=== PATIENT | female | born 1980 | race Two or more races ===

== ENCOUNTER 2022-08-14 10:23 | Outpatient (CLI) | payer MEDICARE | END 2022-08-14 10:24 | disposition EMS.NT | LOC: EMS 10:23 | DX: K86.1 Other chronic pancreatitis (principal) ==

== ENCOUNTER 2022-08-14 11:15 | Emergency (ER) | payer MEDICARE ==
[2022-08-14 11:55] LABS: BASOPHILS % (AUTO) 0.5 %; EOSINOPHILS # (AUTO) 0.4 10^3/uL (0.0-0.7); EOSINOPHILS % (AUTO) 4.6 %; HCT - HEMATOCRIT 36.4 % (37.0-47.0); LYMPHOCYTES # (AUTO) 2.4 10^3/uL (1.5-3.5); LYMPHOCYTES % (AUTO) 28.9 %; MEAN CORPUSCULAR HEMOGLOBIN 26.4 pg (27.0-31.0); MEAN CORPUSCULAR HGB CONC 30.2 g/dL (32.0-36.0); MEAN CORPUSCULAR VOLUME 87.3 fL (81.0-99.0); MEAN PLATELET VOLUME 11.3 fL (7.9-10.8); MONOCYTES # (AUTO) 0.8 10^3/uL (0.0-1.0); MONOCYTES % (AUTO) 9.3 %; NEUTROPHILS # (AUTO) 4.7 10^3/uL (1.5-6.6); NEUTROPHILS % (AUTO) 55.3 %; PLT - PLATELET COUNT 252 10^3/uL (130-450); RED BLOOD COUNT 4.17 10^6/uL (4.20-5.40); RED CELL DISTRIBUTION WIDTH 16.5 % (12.0-15.0); WHITE BLOOD COUNT 8.4 x10^3/uL (4.8-10.8)
[2022-08-14] MEDS ORDERED: HYDROmorphone 1 MG/ML CARPUJECT IVP STA ×2 (12:01→13:55)
[2022-08-14] MEDS ORDERED: SODIUM CHLORIDE 0.9% 1,000 ML IV STA (12:01)
--- NOTE | 2022-08-14 12:02 | ED Physician Documentation ---
History of Present Illness - Stated complaint Stated Complaint: ABD PX/SYNCOPAL/MIGRAINE - Chief complaint Chief Complaint: Neuro - History obtained from History obtained from: Patient - Additonal information Additional information: 42-year-old woman with history of recurrent pancreatitis related to remote alcoholism, having quit drinking 2 years ago. She also has a history of cholecystectomy, Guillain-Simmons syndrome in 2015, and migraines. She developed her usual pancreatitis abdominal pain starting 2 days ago, epigastric and radiating to the right upper quadrant and diffusely as well as the back. Nausea but no vomiting. When she gets severe pain she tends to have syncope and she did pass out twice today with severe pain. There is no associated chest pain or trouble breathing. She has noted allergies to ketorolac and morphine but says she tolerates Dilaudid well. Review of Systems Ten Systems: 10 systems reviewed and negative Cardiac: denies: Chest pain / pressure, Palpitations Respiratory: denies: Dyspnea, Cough GI: reports: Abdominal Pain, Nausea. denies: Vomiting, Diarrhea PD PAST MEDICAL HISTORY - Past Medical History Past Medical History: Yes Endocrine/Autoimmune: Other GI: Pancreatitis, Cirrhosis Other Past Medical History: hx of ETOH abuse/liver failure - Past Surgical History Past Surgical History: Yes General: Cholecystectomy - Present Medications Home Medications: Ambulatory Orders Medication Instructions Recorded Confirmed Ondansetron Odt [Zofran] 4 mg TL Q6H PRN #10 tablet 08/14/22 Oxycodone HCl/Acetaminophen 1 - 2 each PO Q6H PRN #14 tablet 08/14/22 [Percocet 5-325 mg Tablet] - Allergies Allergies/Adverse Reactions: Allergies Allergy/AdvReac Type Severity Reaction Status Date / Time adhesive tape Allergy Unknown Verified 08/14/22 11:20 ketorolac [From Toradol] Allergy Rash Verified 08/14/22 11:20 morphine Allergy Rash Verified 08/14/22 11:20 - Social History Does the pt smoke?: No Smoking Status: Never smoker Does the pt drink ETOH?: No Does the pt have substance abuse?: No - POLST Patient has POLST: No PD ED PE NORMAL - Vitals Vital signs reviewed: Yes - General General: Alert and oriented X 3, No acute distress - Cardiac Cardiac: RRR, No murmur - Respiratory Respiratory: No respiratory distress, Clear bilaterally - Abdomen Abdomen: Normal bowel sounds, Soft, Non tender - Derm Derm: No rash - Extremities Extremities: No edema, No calf tenderness / cord - Neuro Neuro: Alert and oriented X 3, Normal speech Results - Vitals Vitals: Vital Signs - 24 hr 08/14/22 08/14/22 08/14/22 11:20 11:54 13:24 Temperature 37.2 C Heart Rate 82 84 92 Respiratory 14 17 20 Rate Blood Pressure 141/79 H 110/72 103/68 O2 Saturation 100 99 100 08/14/22 14:30 Temperature 36.3 C L Heart Rate 87 Respiratory 21 Rate Blood Pressure 132/80 H O2 Saturation 93 Oxygen O2 Source Room air - Labs Labs: Laboratory Tests 08/14/22 08/14/22 08/14/22 11:46 11:46 11:46 WBC 8.4 RBC 4.17 L Hgb 11.0 L Hct 36.4 L MCV 87.3 MCH 26.4 L MCHC 30.2 L RDW 16.5 H Plt Count 252 MPV 11.3 H Neut # (Auto) 4.7 Lymph # (Auto) 2.4 [place] # (Auto) 0.8 Eos # (Auto) 0.4 Baso # (Auto) 0.0 Absolute Nucleated RBC 0.00 Nucleated RBC % 0.0 Sodium 132 L Potassium 4.0 Chloride 100 L Carbon Dioxide 26 Anion Gap 6.0 BUN 19 Creatinine 0.9 Estimated GFR (MDRD) 68 L Glucose 100 Calcium 8.4 L Total Bilirubin 0.6 AST 23 ALT 24 Alkaline Phosphatase 121 Troponin I High Sens < 2.3 L Total Protein 7.4 Albumin 3.7 Globulin 3.7 Albumin/Globulin Ratio 1.0 Lipase 34 Urine HCG, Qual 08/14/22 12:34 WBC RBC Hgb Hct MCV MCH MCHC RDW Plt Count MPV Neut # (Auto) Lymph # (Auto) [place] # (Auto) Eos # (Auto) Baso # (Auto) Absolute Nucleated RBC Nucleated RBC % Sodium Potassium Chloride Carbon Dioxide Anion Gap BUN Creatinine Estimated GFR (MDRD) Glucose Calcium Total Bilirubin AST ALT Alkaline Phosphatase Troponin I High Sens Total Protein Albumin Globulin Albumin/Globulin Ratio Lipase Urine HCG, Qual NEGATIVE PD Medical Decision Making - ED course ED course: 42-year-old woman presents with abdominal pain similar to prior episodes of chronic recurrent pancreatitis. She has a benign exam, labs were normal with the exception of mild anemia and mild hyponatremia. Feeling better after divided doses of pain medication and IV fluids. She passed a p.o. challenge here and requested discharge. We counseled her on clear liquid diet for the next day. Departure - Departure Disposition: 01 Home, Self Care Clinical Impression: Abdominal pain Condition: Good Record reviewed to determine appropriate education?: Yes Instructions: ED Abdominal Pain Female Non-Specific Abdominal Pain Prescriptions: Oxycodone HCl/Acetaminophen [Percocet 5-325 mg Tablet] 1 - 2 each PO Q6H PRN #14 tablet PRN Reason: pain Ondansetron Odt [Zofran] 4 mg TL Q6H PRN #10 tablet PRN Reason: Nausea / Vomiting Comments: I sent your prescriptions to [facility] in [place]. Return for new or worsening symptoms. Follow-up with your primary care physician on the return home. I am prescribing a short course of narcotic pain medication for you. These are potentially dangerous and addictive medications that should be used carefully. These medications may constipate you. Take an ypgl-zsn-wgbsrci stool softener (docusate) twice daily with plenty of water while taking these medications. If you go 24 hours without a bowel movement, take fivw-tzq-nhvloqj miralax, per package instructions. Do not drink or drive while taking these medications. If you received narcotic or sedating medications while in the emergency department, do not drive for 24 hours. Store this medication in a safe, secure place and out of reach of children. It is a violation of federal law to give or sell this medication to another person or to use in a manner other than prescribed. The ED will not refill narcotic prescriptions, including prescriptions lost or stolen. To dispose of unwanted medications: 1. [facility] at [address] in [place] has a medication drop box. They accept prescription medications (in pill form) Thursday through Thursday 9:00 a.m. to 5:00 p.m. 2. The [facility] accepts prescription medications (in pill form only) for disposal year round. Call for more information. 3. Contact the [facility] for the next [facility] prescription drug collection event. , [phone], or [phone]; Note that many narcotic pain relievers also contain Tylenol/acetaminophen. Please ensure that your total dose of acetaminophen from all sources does not exceed 3 g (3000 mg) per day. Discharge Date/Time: 08/14/22 14:51
[2022-08-14 12:10] LABS: ALBUMIN 3.7 g/dL (3.2-5.5); BILIRUBIN,TOTAL 0.6 mg/dL (0.2-1.0); CALCIUM 8.4 mg/dL (8.5-10.3); CREATININE 0.9 mg/dL (0.4-1.0); TOTAL PROTEIN 7.4 g/dL (6.7-8.2)
[2022-08-14] MEDS ORDERED: ONDANSETRON 4 MG/2 ML VIAL IVP STA (12:28)
[2022-08-14 12:44] LABS: HCG UR QUAL NEGATIVE
[2022-08-14] MEDS ORDERED: LIDOCAINE VISCOUS 2% 15 ML UDC MM STA (13:21)
[2022-08-14] MEDS ORDERED: MAG HYDROX/AL HYDROX/SIMETH 30 ML UDC PO STA (13:21)
[2022-08-14 14:36] VITALS: BP 132/80
== END 2022-08-14 14:51 | disposition home or self-care (01) ==
LOC: ED 11:15
DX: R10.13 Epigastric pain (principal); K86.1 Other chronic pancreatitis
CPT/HCPCS: 36415; 80053; 81025; 83690; 84484; 85025; 93005; 96361; 96374; 96375; 96376; 99282; 99284; A9270; J1170

== ENCOUNTER 2022-08-23 11:39 | Outpatient (CLI) | payer MEDICARE | END 2022-08-23 11:40 | disposition critical access hospital (66) | LOC: EMS 11:39 | DX: R10.10 Upper abdominal pain, unspecified (principal); R11.0 Nausea; R42 Dizziness and giddiness; R55 Syncope and collapse; K92.1 Melena; I95.9 Hypotension, unspecified | CPT/HCPCS: A0425; A0427 ==

== ENCOUNTER 2022-08-23 12:03 | Emergency (ER) | payer MEDICARE ==
[2022-08-23] MEDS ORDERED: SODIUM CHLORIDE 0.9% 1,000 ML IV STA (12:10)
--- NOTE | 2022-08-23 12:13 | ED Physician Documentation ---
History of Present Illness - Stated complaint Stated Complaint: ABD PX/SYNCOPY - Additonal information Additional information: History is obtained from EMS, the patient as well as chart review of recent ED visit. Patient is a reliable historian 42-year-old female presents to the emergency department for evaluation of upper abdominal pain and syncope. Patient has a history of remote alcoholism having quit more than 2 years ago. She has an associated history of pancreatitis se condary to this also has a history of Guillain-Simmons syndrome. Patient reports that she has been having increasing upper abdominal pain for the last 2 to 3 days. Some nausea no vomiting. She also reports some bloody stools over the last 2 to 3 days. This morning the pain got severe and she fainted for perhaps less than a minute. She denies any chest pain or shortness of breath with this. For EMS she had a soft blood pressure of 90/60 and they were able to give her some IV fluid. Her blood glucose was 112 on scene. Patient reports that she will often faint especially when in pain and this is not a new symptom for her. She presents here alert and well-appearing. She endorses 10 out of 10 abdominal pain though this is a subjective finding and she appears comfortable and in no distress. She is able to provide a full history Seen in this emergency department for similar 08/14/2022. Patient is visiting the [place] from [place] and is scheduled to return home tomorrow. Patient rep orts that she was not aware that a prescription for pain and nausea medicine have been sent for her to the pharmacy with her last ED visit and she did not fill it Review of Systems Constitutional: denies: Fever, Chills Cardiac: reports: Reviewed and negative Respiratory: reports: Reviewed and negative GI: reports: Abdominal Pain, Nausea, Bloody / black stool. denies: Vomiting : reports: Reviewed and negative Skin: reports: Reviewed and negative Musculoskeletal: reports: Reviewed and negative Neurologic: reports: Reviewed and negative Psychiatric: reports: Reviewed and negative PD PAST MEDICAL HISTORY - Past Medical History Endocrine/Autoimmune: Other GI: Pancreatitis, Cirrhosis - Past Surgical History Past Surgical History: Yes General: Cholecystectomy - Present Medications Home Medications: Ambulatory Orders Medication Instructions Recorded Confirmed Ondansetron Odt [Zofran] 4 mg TL Q6H PRN #10 tablet 08/14/22 Oxycodone HCl/Acetaminophen 1 - 2 each PO Q6H PRN #14 tablet 08/14/22 [Percocet 5-325 mg Tablet] oxyCODONE [Roxicodone] 5 mg PO BID PRN #5 tablet 08/23/22 - Allergies Allergies/Adverse Reactions: Allergies Allergy/AdvReac Type Severity Reaction Status Date / Time adhesive tape Allergy Unknown Verified 08/14/22 11:20 ketorolac [From Toradol] Allergy Rash Verified 08/14/22 11:20 morphine Allergy Rash Verified 08/14/22 11:20 - Social History Does the pt smoke?: No Smoking Status: Never smoker Does the pt drink ETOH?: No Does the pt have substance abuse?: No - POLST Patient has POLST: No PD ED PE EXPANDED - General General: Alert, No acute distress, Other (Obese) - Cardiac Cardiac: Regular Rate, Radial strong equal, Pedal strong equal, Cap refill < 2 sec. No: Murmur Present - Respiratory Respiratory: Clear to ausultation larry. No: Distress, Labored - Abdomen Abdomen: Tender to palpation (Epigastrium; Obese abdomen generally nontender though minimal tenderness elicited in the epigastrium. No flank pain guarding or rebound.). No: Surgical scars - Rectal Rectal: Normal Tone, Casting Inspector present, Other (Digital rectal exam revealed no blood in vault scant amount of stool was brown. No hematochezia or melena) - Derm Derm: Normal color, Warm and dry. No: Rash - Extremities Extremities: Normal. No: Deformity, Tenderness - Neuro Neuro: Alert and Oriented X 3, CNII-XII intact - GCS Eye Opening: Spontaneous Motor: Obeys Commands Verbal: Oriented Total: 15 Results - Vitals Vitals: Vital Signs - 24 hr 08/23/22 08/23/22 12:31 12:38 Heart Rate 92 93 Respiratory 18 17 Rate Blood Pressure 104/68 126/65 O2 Saturation 100 97 Oxygen O2 Source Room air - EKG (time done) 1234 Rate: Rate (enter#) (86) Rhythm: NSR [place]: Normal Intervals: Normal OR. No: Prolonged QT QRS: Low voltage Ischemia: Normal ST segments Compare to prior EKG: Unchanged from prior EKG Computer interpretation: Agree with computer - Labs Labs: Laboratory Tests 08/23/22 08/23/22 08/23/22 12:21 12:21 12:21 WBC 5.2 RBC 4.14 L Hgb 10.7 L Hct 35.9 L MCV 86.7 MCH 25.8 L MCHC 29.8 L RDW 17.6 H Plt Count 246 MPV 11.0 H Neut # (Auto) 2.9 Lymph # (Auto) 1.7 [place] # (Auto) 0.3 Eos # (Auto) 0.2 Baso # (Auto) 0.0 Absolute Nucleated RBC 0.00 Nucleated RBC % 0.0 PT INR Sodium 138 Potassium 4.0 Chloride 105 Carbon Dioxide 23 Anion Gap 10.0 BUN 14 Creatinine 0.9 Estimated GFR (MDRD) 68 L Glucose 100 Calcium 8.3 L Total Bilirubin 0.4 AST 33 ALT 20 Alkaline Phosphatase 107 Troponin I High Sens < 2.3 L Total Protein 7.0 Albumin 3.6 Globulin 3.4 Albumin/Globulin Ratio 1.1 Lipase 31 Serum HCG, Qual 08/23/22 08/23/22 12:21 12:55 WBC RBC Hgb Hct MCV MCH MCHC RDW Plt Count MPV Neut # (Auto) Lymph # (Auto) [place] # (Auto) Eos # (Auto) Baso # (Auto) Absolute Nucleated RBC Nucleated RBC % PT 10.9 INR 1.0 Sodium Potassium Chloride Carbon Dioxide Anion Gap BUN Creatinine Estimated GFR (MDRD) Glucose Calcium Total Bilirubin AST ALT Alkaline Phosphatase Troponin I High Sens Total Protein Albumin Globulin Albumin/Globulin Ratio Lipase Serum HCG, Qual NEGATIVE - Rads (name of study) cxr Radiology: EMP read indepedently (No acute cardiopulmonary process) ct abd Radiology: Final report received (Pancreatic calcifications consistent with prior pancreatitis. No evidence of acute pancreatitis or pseudocyst. Distended urinary bladder without hydronephrosis.) PD Medical Decision Making - ED course Complexity details: reviewed old records, considered differential, d/w patient ED course: 42-year-old female presents to the emergency department for upper abdominal pain with nausea but no vomiting. History of pancreatitis though in the past. Quit drinking 2 years ago. She did have an episode of pain that got worse this morning causing her to faint. This is occurred to her multiple times in the past. She also had a similar visit about 1 week ago. She is scheduled to return to [place] tomorrow. Here in the emergency department she is alert very well-appearing. She had no worrisome vital sign abnormalities though for EMS she did have a soft blood pressure of 90/60. She appeared very uncomfortable and on my exam I elicited no tenderness though the patient stated it hurt quite a bit. She did receive Dilaudid here in the emergency department with full resolution of symptoms and patient was able to tolerate clear liquids. We did obtain serum blood work and my interpretation is that there are no acute worrisome findings. Specifically no worrisome anemia or leukocytosis. Her electrolytes were unremarkable. Her lipase is not elevated. However given that this was a second ED visit for similar over the preceding 2 weeks I did obtain a CT of the abdomen which showed pancreatic calcifications consistent with previous pancreatitis but no findings suggestive of acute pancreatitis or pseudocyst formation. Patient does have a history of gastritis and GERD for which she reports compliance with Protonix but I do suspect that recurrent GERD is the cause of her symptoms today. Clinically there is nothing to suggest a bowel obstruction. She has no urinary symptoms so urinalysis was deferred. Her CT of the abdomen did show distended bladder but the patient admitted to needing to urinate. I am prescribing a limited amount of oxycodone for analgesia. She is returning home to [place] tomorrow and wishes to be discharged. We did discuss emergent return precautions. Also advised close follow-up with primary care provider. Departure - Departure Disposition: 01 Home, Self Care Clinical Impression: Upper abdominal pain, History of pancreatitis Condition: Stable Record reviewed to determine appropriate education?: Yes Prescriptions: oxyCODONE [Roxicodone] 5 mg PO BID PRN #5 tablet PRN Reason: Pain Comments: You are seen today in the emergency department for upper abdominal pain that radiates to your flank. You do have a history of pancreatitis. The emergency department did obtain blood work that showed no worrisome findings. We did do a chest x-ray that also showed no findings of worry with your heart or lungs. A CT of your abdomen shows calcifications in the pancreas which is consistent with a history of previous pancreatitis but no findings to suggest new pancreatitis. It is not clear at this time what the cause of your pain is though I do suspect gastritis or GERD. This can be very uncomfortable. Continue the pantoprazole you are already taking. When you return to [place] discussed these ED visits. You may benefit from referral for an EGD. I am prescribing a very limited amount of oxycodone 5 tablets until you are able to return to [place]. I am prescribing a short course of narcotic pain medication for you. These are potentially dangerous and addictive medications that should be used carefully. These medications may constipate you. Take an qltd-cde-nrmlbcz stool softener (docusate) twice daily with plenty of water while taking these medications. If you go 24 hours without a bowel movement, take jnxw-nor-exxeuqt miralax, per package instructions. Do not drink or drive while taking these medications. If you received narcotic or sedating medications while in the emergency department, do not drive for 24 hours. Store this medication in a safe, secure place and out of reach of children. It is a violation of federal law to give or sell this medication to another person or to use in a manner other than prescribed. The ED will not refill narcotic prescriptions, including prescriptions lost or stolen. To dispose of unwanted medications: 1. [facility] at [address] in [place] has a medication drop box. They accept prescription medications (in pill form) Thursday through Thursday 9:00 a.m. to 5:00 p.m. 2. The [facility] accepts prescription medications (in pill form only) for disposal year round. Call for more information. 3. Contact the [facility] for the next [facility] sponsored prescription d rug collection event. , [phone], or [phone]; Note that many narcotic pain relievers also contain Tylenol/acetaminophen. Please ensure that your total dose of acetaminophen from all sources does not exceed 3 g (3000 mg) per day.
[2022-08-23] MEDS ORDERED: HYDROmorphone 1 MG/ML CARPUJECT IVP STA ×2 (12:17→13:43)
[2022-08-23 12:32] LABS: BASOPHILS % (AUTO) 0.6 %; EOSINOPHILS # (AUTO) 0.2 10^3/uL (0.0-0.7); HCT - HEMATOCRIT 35.9 % (37.0-47.0); HGB - HEMOGLOBIN 10.7 g/dL (12.0-16.0); LYMPHOCYTES # (AUTO) 1.7 10^3/uL (1.5-3.5); LYMPHOCYTES % (AUTO) 32.4 %; MEAN CORPUSCULAR HEMOGLOBIN 25.8 pg (27.0-31.0); MEAN CORPUSCULAR HGB CONC 29.8 g/dL (32.0-36.0); MEAN CORPUSCULAR VOLUME 86.7 fL (81.0-99.0); MONOCYTES # (AUTO) 0.3 10^3/uL (0.0-1.0); MONOCYTES % (AUTO) 6.6 %; NEUTROPHILS # (AUTO) 2.9 10^3/uL (1.5-6.6); NEUTROPHILS % (AUTO) 55.4 %; PLT - PLATELET COUNT 246 10^3/uL (130-450); RED BLOOD COUNT 4.14 10^6/uL (4.20-5.40); RED CELL DISTRIBUTION WIDTH 17.6 % (12.0-15.0); WHITE BLOOD COUNT 5.2 x10^3/uL (4.8-10.8)
[2022-08-23 12:47] LABS: ALBUMIN 3.6 g/dL (3.2-5.5); ALBUMIN/GLOBULIN RATIO 1.1 (1.0-2.2); BILIRUBIN,TOTAL 0.4 mg/dL (0.2-1.0); CALCIUM 8.3 mg/dL (8.5-10.3); CREATININE 0.9 mg/dL (0.4-1.0)
[2022-08-23 13:03] LABS: HCG,QUALITATIVE BLOOD NEGATIVE
--- NOTE | 2022-08-23 13:27 | XRAY Report ---
PROCEDURE: Chest 1 View X-Ray INDICATIONS: chest pain TECHNIQUE: One view of the chest was acquired. COMPARISON: None. FINDINGS: Surgical changes and devices: None. Lungs and pleura: No pleural effusions or pneumothorax. Lungs are clear. Mediastinum: Mediastinal contours appear normal. Heart size is normal. Bones and chest wall: No suspicious bony lesions. Overlying soft tissues appear unremarkable. IMPRESSION: Chest without acute cardiopulmonary abnormalities or focal airspace disease. Reviewed by: Mainor Newby MD on 08/23/2022 1:26 PM [facility] Approved by: Mainor Newby MD on 08/23/2022 1:26 PM [facility] Station ID: [id number]
[2022-08-23 13:37] LABS: PT - PROTHROMBIN TIME 10.9 secs (9.9-12.6)
--- NOTE | 2022-08-23 13:51 | CT Report ---
PROCEDURE: CT abdomen pelvis without contrast INDICATIONS: abdominal pain; hx of pancreatitis TECHNIQUE: Noncontrast 5 mm thick sections acquired from the diaphragms to the symphysis. 5 mm coronal and sagi ttal reformats were then performed. For radiation dose reduction, the following was used: automated exposure control, adjustment of mA and/or kV according to patient size. COMPARISON: None. FINDINGS: Lower thorax: The lung bases are clear. Heart size normal. No hiatal hernia. Liver: Normal in size and attenuation. No contour deformity present. Biliary system: Cholecystectomy Pancreas: Coarse pancreatic calcifications, consistent with sequela of pancreatitis. No evidence of a cute inflammation Spleen: Normal in size and density. Adrenals: Normal morphology and density. Reproductive system: Intrauterine device in place Urinary system: Normal renal size and attenuation. No renal calculi, hydronephrosis, or solid mass p resent. Urinary bladder distended almost to the level of the umbilicus. Gastrointestinal system: The bowel appears unremarkable with no evidence of bowel obstruction or inf lammation. The stomach appears unremarkable. Appendix: No findings to suggest acute appendicitis. Peritoneal spaces: No mesenteric or retroperitoneal adenopathy. No free air. No free fluid. Vasculature: The IVC, aorta and iliac vasculature are unremarkable. Musculoskeletal: Normal bone mineralization. No acute fractures. Abdominal wall intact without karthikeyan dence of ventral or inguinal hernias. IMPRESSION: 1. Pancreatic calcifications, consistent with prior pancreatitis. No evidence of acute pancreatitis o r pseudocyst. 2. Distended urinary bladder without hydronephrosis. Reviewed by: Reji Jimenez MD on 08/23/2022 12:50 PM [facility] Approved by: Reji Jimenez MD on 08/23/2022 12:50 PM [facility] Station ID: [id number]
[2022-08-23 14:09] VITALS: BP 127/78
== END 2022-08-23 14:10 | disposition home or self-care (01) ==
LOC: EDUNIT# → ED 12:03
DX: R10.10 Upper abdominal pain, unspecified (principal); Z87.19 Personal history of other diseases of the digestive system
CPT/HCPCS: 36415; 71045; 74176; 80053; 83690; 84484; 84703; 85025; 85610; 86850; 86900; 86901; 93005; 96361; 96374; 96376; 99284; J1170